=== PATIENT | female | born 1970 | race Caucasian/White ===

== ENCOUNTER 2016-06-04 07:12 | Emergency (ER) | payer MEDICAID ==
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
[2016-06-04 08:37] VITALS: BP 143/67; PULSE 82; RESP 18; TEMP 98.6; O2SAT 95
== END 2016-06-04 08:40 | disposition home or self-care (01) ==
LOC: CED 07:12
DX: J20.9 Acute bronchitis, unspecified (principal); I10 Essential (primary) hypertension; F31.9 Bipolar disorder, unspecified; Z72.0 Tobacco use; Z87.820 Personal history of traumatic brain injury
CPT/HCPCS: 71020-PO; 87400-PO; 87880-PO; 99214-PO; G0463-PO